=== PATIENT | male | born 1990 | race Caucasian/White ===

== ENCOUNTER 2021-01-20 16:32 | Outpatient (CLI) | payer OTHER | END 2021-01-20 23:59 | disposition home or self-care (01) | LOC: LAB 16:32 | PROVIDERS: ATTEND Nurse Practitioner | DX: J18.9 Pneumonia, unspecified organism (principal); Z20.822 Contact with and (suspected) exposure to COVID-19 ==

== ENCOUNTER 2021-01-24 16:29 | Emergency (ER) | payer OTHER ==
--- NOTE | 2021-01-24 19:24 | XRAY Report ---
PROCEDURE: Chest 2 View X-Ray INDICATIONS: cough TECHNIQUE: 2 view(s) of the chest. COMPARISON: None. FINDINGS: Surgical changes and devices: None. Lungs and pleura: No pleural effusions or pneumothorax. Lungs are clear. Mediastinum: Mediastinal contours are normal. Heart size is normal. Bones and chest wall: No suspicious bony abnormalities. Soft tissues appear unremarkable. IMPRESSION: No acute cardiopulmonary abnormality. Reviewed by: Jairon Cline MD on 01/24/2021 7:23 PM [facility] Approved by: Jairon Cline MD on 01/24/2021 7:23 PM [facility] Station ID: [id number]
[2021-01-24] MEDS ORDERED: BENZONATATE 100 MG CAPSULE PO STA (19:49)
[2021-01-24] MEDS ORDERED: ALBUTEROL NEB 2.5 MG/3 ML INH STA (19:49)
--- NOTE | 2021-01-24 19:50 | ED Physician Documentation ---
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 He has been sick for about a week and a half with what started as cough runny nose and sore throat. He has a persistent cough and it is getting worse and is now severe. [place] had [place] viral process. Subsequently followed up and was seen at the walk-in clinic where he was diagnosed clinically, not radiographically, with "walking pneumonia." Started on a Z-Roland which she has since finished. There is no improvement. He no symptomatic treatments for cough have been given. Review of Systems Constitutional: reports: Reviewed and negative Eyes: reports: Reviewed and negative Nose: reports: Rhinorrhea / runny nose Throat: denies: Sore throat Respiratory: reports: Dyspnea, Cough PD PAST MEDICAL HISTORY - Present Medications Home Medications: Ambulatory Orders Medication Instructions Recorded Confirmed Albuterol Sulf [Ventolin Hfa 1 - 2 puffs INH Q4HR PRN #1 inhaler 01/24/21 Inhaler] Benzonatate [Tessalon] 200 mg PO QID PRN #20 cap 01/24/21 Hydrocortisone Acetate 1 applic TOP DAILY 01/24/21 01/24/21 guaiFENesin/CODEINE [Robitussin AC] 5 - 10 ml PO Q6H PRN #120 ml 01/24/21 - Allergies Allergies/Adverse Reactions: Allergies Allergy/AdvReac Type Severity Reaction Status Date / Time No Known Drug Allergies Allergy Verified 01/24/21 16:32 PD ED PE NORMAL - Vitals Vital signs reviewed: Yes - General General: Alert and oriented X 3, Other (Frequent bronchitic coughing to the point that he almost cannot finish a sentence.) - Neck Neck: Supple, no meningeal sign, No bony TTP - Cardiac Cardiac: RRR, No murmur - Respiratory Respiratory: No respiratory distress, Clear bilaterally - Abdomen Abdomen: Non tender - Derm Derm: No rash - Neuro Neuro: Alert and oriented X 3, Normal speech Results - Vitals Vitals: Vital Signs - 24 hr 01/24/21 01/24/21 01/24/21 16:33 19:45 20:00 Temperature 36.9 C Heart Rate 95 86 Respiratory 19 15 17 Rate Blood Pressure 137/111 H 149/77 H O2 Saturation 99 99 01/24/21 01/24/21 20:06 20:47 Temperature Heart Rate 70 Respiratory 18 15 Rate Blood Pressure 148/83 H O2 Saturation Oxygen O2 Source Room air - Rads (name of study) 2 view chest x-ray is unremarkable Radiology: EMP read contemporaneously PD MEDICAL DECISION MAKING - ED course ED course: 30-year-old gentleman with what sounds like a viral process but with an almost debilitating cough. Slight improvement after albuterol and Tessalon here and he was given some opiates to go home with given the severity of his symptoms. Chest x-ray is clear. As are his lungs. Departure - Departure Disposition: Home, Self Care Clinical Impression: Viral bronchitis Condition: Good Record reviewed to determine appropriate education?: Yes Instructions: ED Bronchitis Asthmatic Prescriptions: Albuterol Sulf [Ventolin Hfa Inhaler] 1 - 2 puffs INH Q4HR PRN #1 inhaler PRN Reason: Shortness Of Air/Wheezing guaiFENesin/CODEINE [Robitussin AC] 5 - 10 ml PO Q6H PRN #120 ml PRN Reason: Cough Benzonatate [Tessalon] 200 mg PO QID PRN #20 cap PRN Reason: Cough Comments: Prescription sent to [facility] [place] Return if worse I am prescribing a short course of narcotic pain medication for you. These are potentially dangerous and addictive medications that should be used carefully. These medications may constipate you. Take an bozw-ulb-kafazel stool softener (docusate) twice daily with plenty of water while taking these medications. If you go 24 hours without a bowel movement, take yeww-uhn-zzxkdyd miralax, per package instructions. Do not drink or drive while taking these medications. If you received narcotic or sedating medications while in the emergency department, do not drive for 24 hours. Store this medication in a safe, secure place and out of reach of children. It is a violation of federal law to give or sell this medication to another person or to use in a manner other than prescribed. The ED will not refill narcotic prescriptions, including prescriptions lost or stolen. To dispose of unwanted medications: 1. [facility] at [address] in [place] has a medication drop box. They accept prescription medications (in pill form) Sunday through Sunday 9:00 a.m. to 5:00 p.m. 2. [facility] accepts prescription medications (in pill form only) for disposal year round. Call for more information. 3. Contact the [facility] for the next [facility] sponsored prescription drug collection event. , [phone], or [phone]; Note that many narcotic pain relievers also contain Tylenol/acetaminophen. Please ensure that your total dose of acetaminophen from all sources does not exceed 3 g (3000 mg) per day. Discharge Date/Time: 01/24/21 20:50
[2021-01-24] MEDS ORDERED: HYDROcod/ACET 5/325 Prepack 4 PO STA (20:40)
[2021-01-24 20:47] VITALS: BP 148/83
== END 2021-01-24 20:50 | disposition home or self-care (01) ==
LOC: ED 16:29
DX: J20.8 Acute bronchitis due to other specified organisms (principal)
CPT/HCPCS: 71046; 94640; 94664; 99283; 99284; A9270

== ENCOUNTER 2022-04-20 14:21 | Outpatient (CLI) | payer OTHER ==
--- NOTE | 2022-04-20 14:59 | SLEEP CARE CONSULTATION ---
Information from patient questionnaire entered by Maddie Vu. I have reviewed and concur with the information entered by Maddie Vu. This document represents the service I personally performed and the decisions made by me, Michelle West ARNP. History of Present Illness Service Date and Time: 04/20/2022 142 Reason for Visit: New patient Chief Complaint: reports: Unrefreshed sleep, Snoring, Excessive daytime sleepiness, Fatigue, Frequent awakenings at night Date of Onset: 6YRS Usual bedtime: 12PM Time it takes to fall asleep: 20-40MIN Snores at night: Yes Observed to quit breathing while asleep: No Sleeps alone due to snoring: Yes Number of times waking at night: 1-2 Reasons for waking at night: reports: Snoring, Gasping for air (only with "crazy nightmare" couple times a month), Other (UNKNOWN). denies: Choking Toss, Turn, or Twitch while sleeping: Yes (has PTSD, will wake up with panic/anxiety) Recalls having dreams: Yes Usually gets out of bed at: 630-7AM Feels refreshed in the morning: No Morning headache: Yes (1-2 times a month) Sleepy or fatigued during the day: Yes Ever fallen asleep while driving: Yes (drowsy driving, no accidents) Takes day naps: Yes (not with new job; used to be 2 times a week) Dreams during day naps: Yes Prior sleep studies: No Additional HPI information: I had the pleasure of seeing KEISHA ESCOBAR today regarding the possibility of him having a sleep disorder. His current complaints are unrefreshed sleep, snoring, excessive daytime sleepiness, fatigue and frequent night awakenings. He states he snores loudly and is sleeping separate from because of it. His has not noted for sure if he stopped breathing. He states he had his tonsils and uvula removed when he was 14 years old because of snoring and possible repeated infections. He is not sure. He does not wake up feeling refreshed in the morning. - Parasomnia Symptoms Ever been unable to move upon waking from sleep: No Walks in sleep: No Talks in sleep: No Ever acted out dreams in sleep: Yes (rare) Ever felt weak in the knees when startled or emotional: Yes (has not fallen to ground) Bothered by creepy, crawly, restless sensations in legs: Yes (5-6 hours after waking up) Problems with memory or concentration: Yes (both, hard time retaining and some concentration too) Subjective Initial [place] Sleepiness Scale score: 16 (03/28/22) Past Medical History Past Medical History: reports: Anxiety, Depression, Mood disorder (PTSD), Other (Lupus) Social History The patient's occupation is a AM. Patient is and lives in [place]. Have you smoked in the past 12 months: No Alcohol use: Yes Alcohol amount and frequency: 2 1XWEEK Caffeine use: Yes Caffeine amount and frequency: 200-400MG 1-2 Family History Family history of sleep disordered breathing: Yes Family Hx Sleep Apnea: Mother: Snoring, Father: Snoring Allergies and Home Medications Known drug allergies: No Drug allergies reviewed: Yes (NKDA) Home medication list reviewed: Yes Allergy and home medication list: Medications: Venlafaxine topical steroid cream for Lupus, unsure of name Review of Systems Weight gain over past 5 years: 30 Cardiovascular: denies: high blood pressure Gastrointestinal: reports: heartburn Neurological: denies: headaches, head trauma Psychiatric: reports: anxiety, depression Ear/Nose/Throat: reports: tonsillectomy, wisdom teeth removed Endocrine: denies: thyroid disease Musculoskeletal: reports: joint pain Physical Exam Vital signs obtained and entered by: MADDIE Chapman MA Blood Pressure: 126/78 (LEFT ARM) Cuff size: long Heart Rate: 91 O2 Saturation: 97 Height: 5 ft 9 in Weight: 259 lb Body Mass Index: 38.2 BMI Classification: Obese Neck circumference: 17 Mouth and throat: narrow oropharynx Soft palate: long Hard palate: normal Uvula visualization: 0% Mallampati Class IV Tongue: enlarged in size with teeth blackman on lateral edges Tonsils: absent bilaterally (uvula also absent) Heart: regular rate and rhythm Lungs: clear bilaterally Impression and Plan 1. Suspected Obstructive Sleep Apnea-Hypopnea Syndrome, as suggested by a history of loud and irregular snoring, frequent awakening during the night, unrefreshed sleep, cognitive impairment, and excessive daytime sleepiness. Narrow oropharynx and obesity are common predisposing factors for obstructive sleep apnea-hypopnea syndrome. I recommend proceeding to polysomnography to confirm the diagnosis and to assess severity. If the patient has significant sl eep disordered breathing, a manual CPAP titration study will also be performed to find the optimal treatment pressure. I informed the patient of what the sleep studies involve and after some discussion, obtained agreement to proceed. The pathophysiology of obstructive sleep apnea-hypopnea syndrome was discussed with the patient and health risks of cardiovascular and cerebrovascular disease if not treated. Risks of drowsy driving discussed in detail and patient advised to avoid long distance driving and to jawbone puller at the first sign of drowsiness. Patient agreed to plan. * Schedule polysomnography * Avoid long distance driving or driving when feeling sleepy. * Avoid alcohol, sedative and muscle relaxant around bedtime. * Attempt to lose weight. * Review instructions provided by trained office staff on how to prepare for the sleep study. * Return for follow-up after sleep study completed. Counseling Topics: Weight loss health impact Visit Type: In Office Time Spent with Patient (minutes): 30 Provider Statement: I spent 100% of the Face to Face Visit with the patient with greater than 50% spent counseling the patient and coordination of care.
[2022-04-20 15:00] VITALS: BP 126/78
== END 2022-04-20 14:22 | disposition home or self-care (01) ==
LOC: SC 14:21
PROVIDERS: ATTEND Nurse Practitioner Family
DX: R06.83 Snoring (principal); G47.8 Other sleep disorders; G47.10 Hypersomnia, unspecified; R41.89 Other symptoms and signs involving cognitive functions and awareness; E66.9 Obesity, unspecified; Z68.38 Body mass index [BMI] 38.0-38.9, adult
CPT/HCPCS: 99203; 99212

== ENCOUNTER 2022-05-29 12:59 | Outpatient (CLI) | payer OTHER ==
--- NOTE | 2022-05-30 08:13 | MRI Report ---
PROCEDURE: KNEE WO - RT INDICATIONS: KNEE PAIN TECHNIQUE: Noncontrast sagittal PD fast spin echo and T2 fast spin echo with fat saturation, sagittal 3-D gradie nt sequence with fat saturation; coronal T1 spin echo and PD fast spin echo with fat saturation, and axial PD fast spin echo with fat saturation through the knee. COMPARISON: None. FINDINGS: Image quality: Excellent. Menisci: There is linear horizontal high T2 signal intensity traversing the middle and peripheral thi rd of the medial meniscal body and posterior horn, demonstrating inferior articular surface extension . Lateral meniscus demonstrates a discoid configuration, and is intact. Cruciate ligaments: The ante rior and posterior cruciate ligaments appear intact. Medial structures: The medial collateral ligament appears intact. Visualized portions of the pes ans erinus tendons appear normal. No abnormal bursal fluid. Lateral structures: The lateral collateral ligament, long and short heads of the biceps femoris tend on appear intact. The popliteus tendon appears normal. Iliotibial band appears normal. Anterior structures: The quadriceps and patellar tendons appear intact. Patellar alignment is dax l. No femoral trochlear dysplasia or ventral trochlear prominence. No edema in the infrapatellar fa t pad. Bones and cartilage: No bone marrow contusions or fractures. Mild tricompartmental periareolar artic ular osteophyte formation. Mild articular cartilage loss diffusely overlies the weightbearing aspects of the medial femoral condyle and medial tibial plateau. Joint space: There is physiologic knee joint fluid. No Mane's cyst. Normal appearing synovial pli are incidentally noted. IMPRESSION: 1. Medial meniscal tearing. 2. Medial compartment articular cartilage loss. Reviewed by: Zachary Hernandez MD on 05/30/2022 8:12 AM PDT Approved by: Zachary Hernandez MD on 05/30/2022 8:12 AM PDT Station ID: [id number]
== END 2022-05-29 13:00 | disposition home or self-care (01) ==
LOC: DI 12:59
PROVIDERS: ATTEND General Practice
DX: S83.241A Other tear of medial meniscus, current injury, right knee, initial encounter (principal); M94.261 Chondromalacia, right knee

== ENCOUNTER 2022-06-05 07:54 | Outpatient (CLI) | payer OTHER | END 2022-06-05 07:55 | disposition home or self-care (01) | LOC: SC 07:54 | PROVIDERS: ATTEND Nurse Practitioner Family | DX: R09.02 Hypoxemia (principal) | CPT/HCPCS: 95806 ==

== ENCOUNTER 2022-08-02 14:28 | Outpatient (CLI) | payer OTHER ==
--- NOTE | 2022-08-02 14:49 | Sleep Patient Instructions ---
Sleep Center Visit Summary - Patient Visit Information Reason for Visit: Sleep Study Followup - Patient Instructions Instructions Attached: Sleep Study Additional Instructions: Your sleep study today was negative for significant sleep disordered breathing, however, the study was borderline and another sleep study has been ordered. You will be completing a sleep study, an in-lab polysomnography (PSG). You will follow-up in the sleep care office after the sleep study is completed to hear the results and talk about therapy, if needed. You will be called by our office staff to schedule this appointment, but you may contact us with any questions. - Clinic Information Contact: [facility] [address] [place] [address] [email or web address] T: [phone]
--- NOTE | 2022-08-02 14:56 | SLEEP CARE CONSULTATION ---
Information from patient questionnaire entered by Mei Vu. I have reviewed and concur with the information entered by Mei Vu. This document represents the service I personally performed and the decisions made by , Michelle West ARNP. History of Present Illness Service Date and Time: 08/02/2022 142 Initial [place] Sleepiness Scale score: 16 (03/28/22) Current [place] Sleepiness Scale score: 15 Additional HPI information: KEISHA ESCOBAR returns for follow up and results of the recently performed home sleep study. The patient was informed of the following findings: No significant sleep disordered breathing with an average AHI of 4.3 and gerhard oxygen saturation of 88%. He only slept supine. I explained the pathophysiology behind obstructive sleep apnea. Patient does not have sleep apnea and was advised how weight gain could increase the risk of developing sleep apnea in the future. I strongly encouraged the patient to lose weight. Patient has light snoring. Snoring can be reduced by weight loss. Weight loss is best achieved with diet consult. Patient instructed to contact PCP for referral. Snoring can also be treated with an oral appliance from a dentist. Advised to check insurance coverage. In addition, an ENT evaluation can be do to see if other treatment is indicated. Patient counseled not drink alcohol less than 4 hours before bedtime as it can increase snoring and apnea. Patient was cautione d about risks of drowsy driving until sleepiness symptoms resolve. Sleep Study - Results Type of Sleep Study: Polysomnography (COMPLETED 06/05/22) Prior sleep studies: No Polysomnography/Home Sleep Study results: Physician Impression: The quality of the study is good. The length of the study is adequate (> 240 minutes). Please also see the tabulated and graphic data. 1. No significant sleep disordered breathing, with an AHI of 4.3/hr and gerhard SaO2 of 88%. During the study, the patient had 8 apneas (8 obstructive, 0 central, 0 mixed) and 22 hypopneas. The longest episode lasted 131.5 seconds. The patient only slept supine during this study (supine AHI was 4.3 and non-supine, 0.00). 2. Hypoxemia (ICD-10 R09.02), minimal, with the lowest oxygen saturation of 88 % and 0.2 minutes with SaO2 under 90%. Baseline oxygen saturation was normal (Average oxygen saturation was 95%). Allergies and Home Medications Known drug allergies: No Drug allergies reviewed: Yes Home medication list reviewed: Yes (no changes) Allergy and home medication list: Allergies No Known Drug Allergies Allergy (Verified 08/01/22 15:45) Review of Systems Review of systems same as previous: Yes (no changes) Physical Exam Vital signs obtained and entered by: MEI Chapman MA Blood Pressure: 126/80 Cuff size: regular Heart Rate: 101 O2 Saturation: 97 Height: 5 ft 9 in Weight: 250 lb 12.8 oz Body Mass Index: 37.0 BMI Classification: Obese Impression and Plan 1. Suspected Obstructive Sleep Apnea-Hypopnea Syndrome, as suggested by a history of loud and irregular snoring, observed cessation of breath while asleep, frequent awakening during the night, unrefreshed sleep, cognitive impairment, and excessive daytime sleepiness. Patient had a HST that was borderline with an AHI of 4.3. He felt that was a better night sleep than normal. I recommend proceeding to polysomnography to confirm the diagnosis and to assess severity. I obtained agreement to proceed. The pathophysiology of obstructive sleep apnea-hypopnea syndrome was discussed with the patient and health risks of cardiovascular and cerebrovascular disease if not treated. Risks of drowsy driving discussed in detail and patient advised to avoid long distance driving and to wire puller at the first sign of drowsiness. Patient agreed to plan. * Schedule polysomnography +- manual CPAP titration study and return in 1-2 weeks after the study to discuss result and initiate therapy. * Avoid long distance driving or driving when feeling sleepy. * Avoid alcohol, sedative and muscle relaxant around bedtime. * Attempt to lose weight. * Review instructions provided by trained office staff on how to prepare for the sleep study. * Return for follow-up after sleep study completed. Counseling Topics: Weight loss health impact Visit Type: In Office Time Spent with Patient (minutes): 17 Provider Statement: I spent 100% of the Face to Face Visit with the patient with greater than 50% spent counseling the patient and coordination of care.
[2022-08-02 14:57] VITALS: BP 126/80
== END 2022-08-02 14:29 | disposition home or self-care (01) ==
LOC: SC 14:28
PROVIDERS: ATTEND Nurse Practitioner Family
DX: R06.83 Snoring (principal); G47.8 Other sleep disorders; R06.81 Apnea, not elsewhere classified; G47.10 Hypersomnia, unspecified; R53.83 Other fatigue; E66.9 Obesity, unspecified; Z68.37 Body mass index [BMI] 37.0-37.9, adult
CPT/HCPCS: 99212; 99213

== ENCOUNTER 2022-08-24 19:16 | Outpatient (CLI) | payer OTHER | END 2022-08-24 19:17 | disposition home or self-care (01) | LOC: SC 19:16 | PROVIDERS: ATTEND Nurse Practitioner Family | DX: G47.33 Obstructive sleep apnea (adult) (pediatric) (principal); E66.9 Obesity, unspecified; Z68.38 Body mass index [BMI] 38.0-38.9, adult | CPT/HCPCS: 95810 ==

== ENCOUNTER 2022-09-12 08:31 | Outpatient (CLI) | payer OTHER ==
--- NOTE | 2022-09-12 09:12 | Sleep Patient Instructions ---
Sleep Center Visit Summary - Patient Visit Information Reason for Visit: Sleep study followup visit - Patient Instructions Instructions Attached: CPAP Dc, CPAP Additional Instructions: You are being started on CPAP therapy with pressure setting at 4-15 cmH2O. You will need to call the sleep care office to set up your follow up once you have your APAP machine and we will schedule a visit to check compliance and response to therapy at that time. You may call the office with any concerns about pressure feeling too low or too much for adjustment, if needed. You should contact DME for any questions or concerns about mask or equipment. Please follow up in the sleep care office one month after obtaining new device. - Clinic Information Contact: [facility] [address] [place] [address] [email or web address] T: [phone]
--- NOTE | 2022-09-12 09:20 | SLEEP CARE CONSULTATION ---
Information from patient questionnaire entered by Mei Vu. I have reviewed and concur with the information entered by Mei Vu. This document represents the service I personally performed and the decisions made by , Michelle West ARNP. History of Present Illness Service Date and Time: 09/12/2022 08 Initial Wirt Sleepiness Scale score: 16 (03/28/22) Current Wirt Sleepiness Scale score: 12 (09/12/22) Additional HPI information: KEISHA ESCOBAR returns for follow up and results of the recently performed polysomnography. I explained the pathophysiology behind obstructive sleep apnea. We then spent quite a bit of time discussing different treatment options. For mild obstructive sleep apnea, surgery and oral appliance are alternatives to nasal CPAP therapy but in moderate or severe cases, nasal CPAP is the most effective and reliable treatment. I reviewed the impact of weight changes on sleep apnea and strongly recommended losing weight. After some discussion, the patient opted to go with the nasal CPAP therapy. Nasal autoCPAP set at 4-15 cmH20 will be ordered with rationale explained. A manual titration study will be ordered if unable to find optimal pressure with office adjustments. I explained how CPAP machine works and what to expect when using the machine. Using CPAP every night in order to get used to it was emphasized. Patient advised to put CPAP mask on before getting into bed so as not to fall asleep without CPAP. To assist acclimation to CPAP use, it could also be used for a short time during day while reading or watching TV. The patient was instructed to call the CPAP supplier to discuss any mechanical problem that may occur. If the mask given is uncomfortable or is difficult to keep on through the night even with adjustment, contact the CPAP supplier as many will replace with another mask style if notified before 30 days. If snoring or perceives is not getting enough air or too much air from the machine, notify this office. Patient counseled not drink alcohol less than 4 hours before bedtime as it can increase snoring and apnea. Patient was cautioned about risks of drowsy driving until sleepiness symptoms resolve. Sleep Study - Results Type of Sleep Study: Polysomnography (COMPLETED 08/24/22) Prior sleep studies: No Polysomnography/Home Sleep Study results: IMPRESSION: The quality of the study is good. The patient had normal sleep efficiency. The sleep architecture was relatively normal as well considering the first night effect. Respiratory monitoring showed mild obstructive sleep apnea-hypopnea (AHI = 10.7) associated with oxyhemoglobin desaturation and mild hypoxia (gerhard oxygen saturation of 83%). The respiratory events occurred independently of sleep stage and body position (supine AHI = 11.1; non-supine = 9.42). Snore was light to loud in intensity. There was no significant periodic leg movement of sleep. Cardiac rhythm was normal sinus rhythm without significant arrhythmia. No abnormal behavior (parasomnia) observed during the night. Allergies and Home Medications Known drug allergies: No Drug allergies reviewed: Yes Home medication list reviewed: Yes (no changes) Allergy and home medication list: Allergies No Known Drug Allergies Allergy (Verified 09/11/22 09:16) Review of Systems Review of systems same as previous: Yes (no changes) Physical Exam Vital signs obtained and entered by: MEI Chapman MA Blood Pressure: 130/82 (LEFT ARM) Cuff size: long Heart Rate: 103 O2 Saturation: 97 Height: 5 ft 9 in Weight: 247 lb Body Mass Index: 36.4 BMI Classification: Obese Impression and Plan 1. Obstructive Sleep Apnea-Hypopnea Syndrome, mild, with lowest oxygen saturation of 83%. Obviously this is the cause of the patients symptoms of unrefreshed sleep, and excessive daytime sleepiness. Positive pressure therapy could benefit anxiety, depression and mood disorder (PTSD). As mentioned above, the patient will be started on nasal autoCPAP therapy with pressure set at 4-15 cmH2O. Compliance guidelines also reviewed. A copy of compliance guidelines will be given for reference at check out. Because the apnea is more severe supine, I instructed to avoid sleeping supine using pillow positioning until able to start CPAP use. 2. Hypoxemia, mild, with a gerhard oxygen saturation of 83% and 4.1 minutes spent under 90%. His baseline oxygen saturation was normal with an average oxygen saturation of 94%. 3. Obesity, unspecified. Currently patients BMI is 36.4. Obesity increases the risk of apnea, CPAP pressure requirements and overall health risks especially cardiovascular and diabetes. Thus patient is advised to lose weight. * Nasal auto CPAP therapy, pressure at 4-15 cm H2O. * Attempt to lose weight. * Avoid alcohol consumption near bedtime. * Avoid supine sleep until using CPAP. * The patient is again cautioned about driving until sleepiness completely resolves. * Return one month after CPAP obtained. I will assess response to therapy and compliance at that time. Counseling Topics: Weight loss health impact Visit Type: In Office Time Spent with Patient (minutes): 23 Provider Statement: I spent 100% of the Face to Face Visit with the patient with greater than 50% spent counseling the patient and coordination of care.
[2022-09-12 09:25] VITALS: BP 130/82
== END 2022-09-12 08:32 | disposition home or self-care (01) ==
LOC: SC 08:31
PROVIDERS: ATTEND Nurse Practitioner Family
DX: G47.33 Obstructive sleep apnea (adult) (pediatric) (principal); R09.02 Hypoxemia; E66.9 Obesity, unspecified; Z68.36 Body mass index [BMI] 36.0-36.9, adult
CPT/HCPCS: 99212; 99213